=== PATIENT | male | born 1960 | race Asian ===

== ENCOUNTER → 2017-03-02 | Outpatient (CLI) | payer MEDICAID | LOC: CLAB 08:00 | PROVIDERS: ATTEND Family Medicine | DX: M51.34 Other intervertebral disc degeneration, thoracic region (principal) | CPT/HCPCS: 72070-PO; 72100-PO ==

== ENCOUNTER → 2017-08-27 | Outpatient (CLI) | payer MEDICAID | LOC: CIMAGING 07:16 | PROVIDERS: ATTEND Family Medicine | DX: R22.31 Localized swelling, mass and lump, right upper limb (principal); M79.601 Pain in right arm | CPT/HCPCS: 93971-PO ==

== ENCOUNTER → 2017-10-16 | Outpatient (CLI) | payer MEDICAID | LOC: CIMAGING 11:55 | PROVIDERS: ATTEND Family Medicine | DX: M25.541 Pain in joints of right hand (principal); M18.11 Unilateral primary osteoarthritis of first carpometacarpal joint, right hand | CPT/HCPCS: 73130-PO ==